=== PATIENT | male | born 1995 | race African-American/Black ===

== ENCOUNTER 2019-04-11 08:28 | Emergency (ER) | payer SELFPAY ==
[2019-04-11] MEDS ORDERED: IBUPROFEN 600 MG TABLET ONE (08:46)
[2019-04-11 09:20] LABS: RAPID GROUP A STREP NEGATIVE (NEGATIVE)
[2019-04-11] MEDS ORDERED: CEFTRIAXONE SODIUM 1 GM ONE (09:40)
[2019-04-11] MEDS ORDERED: LIDOCAINE HCL-MPF 1% 2ML VIAL ONE (09:40)
== END 2019-04-11 09:58 | disposition home or self-care (01) ==
LOC: EDH 08:28
DX: J02.9 Acute pharyngitis, unspecified (principal); R50.9 Fever, unspecified; Z72.0 Tobacco use
CPT/HCPCS: 87804 ×2; 87880; 96372; 99283; J0696; J3490

== ENCOUNTER 2023-04-06 13:16 | Emergency (ER) | payer OTHER ==
[~2023-04-06] VITALS: Ht 180.3 cm; Wt 92.5 kg
[2023-04-06 16:22] LABS: APPEARANCE,URINE CLEAR (CLEAR); BILIRUBIN,URINE NEGATIVE (NEGATIVE); COLOR,URINE LIGHT-YELLOW (YELLOW); GLUCOSE, URINE (UA) NEGATIVE (NEGATIVE); KETONES,URINE NEGATIVE (NEGATIVE); LEUKOCYTE ESTERASE ,URINE NEGATIVE Leu/uL (NEGATIVE); NITRATE,URINE NEGATIVE (NEGATIVE); OCCULT BLOOD,URINE NEGATIVE (NEGATIVE); PROTEIN,URINE NEGATIVE (NEGATIVE); UROBILINOGEN,URINE 0.2 mg/dL (0.2-1.0)
[2023-04-06 16:23] LABS: ADD UA MICROSCOPIC YES
[2023-04-06 16:25] LABS: MUCUS,URINE RARE LPF (None Seen); RBC,URINE 0-1 /HPF (0-1); WBC,URINE 0-1 /HPF (0-1)
[2023-04-06 16:28] LABS: AMPHET/METH SCREEN,URINE NEGATIVE (NEGATIVE); BARBITURATE SCREEN, URINE NEGATIVE (NEGATIVE); BENZODIAZEPINES SCREEN,URINE NEGATIVE (NEGATIVE); CANNABINOID SCREEN,URINE POSITIVE (NEGATIVE); COCAINE SCREEN,URINE NEGATIVE (NEGATIVE); OPIATE SCREEN,URINE NEGATIVE (NEGATIVE); PHENCYCLIDINE SCREEN,URINE NEGATIVE (NEGATIVE)
[2023-04-06 16:43] LABS: HEMATOCRIT 43.8 % (42-54); MEAN CORPUSCULAR HEMOGLOBIN 23.2 pg (27.0-33.0); MEAN CORPUSCULAR HGB CONC 31.7 g/dL (32.0-36.0); MEAN CORPUSCULAR VOLUME 73.1 fL (79-99); PLATELET COUNT (AUTO) 261 K/uL (130-400); RED BLOOD CELL COUNT(AUTO) 5.99 MIL/uL (4.50-6.20); RED CELL DISTRIBUTION WIDTH 14.4 % (11.0-15.5); WHITE BLOOD COUNT (AUTO) 5.9 K/uL (4.8-10.8)
[2023-04-06 17:02] LABS: POTASSIUM 3.9 mmol/L (3.5-5.1)
[2023-04-06 17:07] LABS: ALBUMIN 4.8 g/dL (3.5-5.0); BILIRUBIN,TOTAL 0.4 mg/dL (0.2-1.0); TOTAL PROTEIN, SERUM 8.4 g/dL (6.0-8.3)
[2023-04-06 18:53] VITALS: BP 122/63; PULSE 66; RESP 17; O2SAT 96
== END 2023-04-06 18:56 | disposition home or self-care (01) ==
LOC: EDH 13:16
DX: F41.9 Anxiety disorder, unspecified (principal); F12.90 Cannabis use, unspecified, uncomplicated; Z79.899 Other long term (current) drug therapy
CPT/HCPCS: 36415; 80053; 80305; 81001; 84484; 85027